=== PATIENT | female | born 1995 ===

== ENCOUNTER → 2023-11-15 09:54 | Outpatient (CLI) | payer BC, SELFPAY ==
--- NOTE | ~2023-11-15 | US_ITS ---
Limited abdominal ultrasound CLINICAL HISTORY: Umbilical discharge TECHNIQUE: Scanning of the umbilicus was performed. FINDINGS: No mass lesion or fluid collection evident. No sinus tract identified. No abnormality ident ified in the periumbilical region. IMPRESSION: No sonographic abnormality identified in the umbilical region. Reviewed, dictated and finalized at [facility]. TECHNICIAN
--- NOTE | ~2023-11-15 | US_ITS ---
EXAMINATION: US pelvic limited DATE: 11/15/2023 10:26 INDICATION: Umbilicus discharge . TECHNIQUE: Grayscale and Doppler transabdominal ultrasound images of the pelvis were obtained. COMPARISON: Limited abdominal ultrasound of the umbilicus, same date. FINDINGS: Transabdominal images of the pelvis reveal a normal appearing uterus. 9 mm anechoic round s tructure in the left adnexa likely a simple ovarian cyst that requires no additional evaluation. The bladder is moderately distended, with borderline wall thickening likely due to the lack of complete d istention. No internal echogenicity. Ureteral jets were not seen or not assessed. IMPRESSION: Unremarkable sonographic findings of the bladder. Reviewed, dictated and finalized at location [facility]. DESIGNER DRAFTER
== END ==
DX: R19.8 Other specified symptoms and signs involving the digestive system and abdomen (principal)
CPT/HCPCS: 76705; 76857